=== PATIENT | female | born 2000 | race Caucasian/White ===

== ENCOUNTER 2021-10-29 22:06 | Outpatient (CLI) | payer BC, SELFPAY | END 2021-10-29 22:07 | disposition home or self-care (01) | LOC: AMB 11-06 00:48 | PROVIDERS: Visit Provider Family Medicine | DX: R41.82 Altered mental status, unspecified (principal) | CPT/HCPCS: A0425; A0427 ==

== ENCOUNTER 2021-10-29 22:31 | Emergency (ER) | payer BC, SELFPAY ==
[2021-10-29 22:40] VITALS: BP 134/82; PULSE 70; RESP 18; TEMP 37.6; O2SAT 100; BMI 23.8
[2021-10-29 22:56] VITALS: BP 134/82; PULSE 70; RESP 16; TEMP 37.6; O2SAT 100
--- NOTE | 2021-10-30 00:13 | ED.PSYCH ---
HPI - Psych General Chief Complaint: Psychiatric Problem/Disorder Stated Complaint: Panic attack Time Seen by Provider: 10/29/21 23:48 History of Present Illness HPI Narrative: 20-year-old young woman comes to emergency department via EMS with concern of potential seizure. Does have a history of panic attacks but apparently never has show quite like this. They have never had a seizure there is no family history of this. Does not struggle with recurrent headaches. They do have chronic pain however. Earlier today had been to a visit with [facility] regarding some right hip pain. They note that ?my legs are shit?. Demonstrates some hypermobility particularly of her patella. With friend accompanying on the way back from studying at the library then later started to have more leg/hip discomfort and fatigue. I believe returned to the dorm when began to shake as described by there friend. They do have memory of a good portion of these events including noting that there mouth was open and they were drooling. They also say that they felt like they could move. They did feel disoriented upon becoming more alert in the ambulance. Much later questioning/conversation reveals a history of prior similar episode probably in someone's kitchen. They note they were able to move enough at that time scratch themselves demonstrating the right thigh. Uses the term dissociative episode at one point elaborating on this kitchen event. Related Data Home Medications Medication Instructions Recorded Confirmed control 10/29/21 sertraline .ROUTE DAILY 10/29/21 Allergies Allergy/AdvReac Type Severity Reaction Status Date / Time No Known Drug Allergies Allergy Verified 10/29/21 22:51 Review of Systems Status of ROS: Reports: 10 or more systems reviewed and unremarkable except as noted in History and below [facility] Medical History Cardiac abnormality Social History Smoking Status: Never smoker How often do you have a drink containing alcohol: never AUDIT-C Alcohol total score: 0 Non-prescribed substance use: denies use Exam Narrative: Exam Narrative: Long fuscia-colored hair. Poor eye contact. Affected, careful speech. Breathing easily. A little tired perhaps but otherwise does not appear to be particularly postictal. Cranial nerves 2-12 are intact. [id number] intact. No nystagmus. No evidence of intraoral trauma. Neck is supple. Lungs are clear. Back without injury Cardiovascular with regular rate and rhythm Extremities are well-perfused. Without edema. Demonstrates notable patellar laxity without pain or apprehension. Right hip pain raising right leg. Const: Vital Signs, click to edit/add: Vital Signs - 24 hr 10/29/21 22:40 10/29/21 22:56 Temperature 99.6 F 99.6 F Pulse Rate [Pulse Oximeter] 70 70 Respiratory Rate 18 16 Blood Pressure [Ri ght Upper Arm] 134/82 134/82 Pulse Oximetry 100 100 Oxygen Delivery Me thod Room Air Room Air Documenting provider has reviewed patient's vital signs: yes Course Course Hospital Course: Generally well. a l ittle more energetic over time in the emergency department Vital Signs Vital signs: Initial Vital Signs Temperature 99.6 F 10/29/21 22:40 Temperature Source Temporal Artery Scan 10/29/21 22:40 Pulse Rate 70 10/29/21 22:40 Respiratory Rate 18 10/29/21 22:40 Blood Pressure 134/82 10/29/21 22:40 Blood Pressure Mean 99 10/29/21 22:40 Blood Pressure Position Supine 10/29/21 22:40 Pulse Oximetry 100 10/29/21 22:40 Oxygen Delivery Method 10/29/21 22:40 Vital Signs Temperature 99.6 F 10/29/21 22:40 Pulse Rate 70 10/29/21 22:40 Respiratory Rate 18 10/29/21 22:40 Blood Pressure 134/82 10/29/21 22:40 Pulse Oximetry 100 10/29/21 22:40 Oxygen Delivery Method 10/29/21 22:40 Temperature 99.6 F 10/29/21 22:56 Pulse Rate 70 10/29/21 22:56 Respiratory Rate 16 10/29/21 22:56 Blood Pressure 134/82 10/29/21 22:56 Pulse Oximetry 100 10/29/21 22:56 Oxygen Delivery Method 10/29/21 22:56 MDM - Psych MDM Narrative Medical decision making narrative: Normal labs. Venous blood gas though does show slightly low CO2 This may have been a pseudo-seizure. Conversion disorder? Appears well at this point. Lab Data Attestation: I reviewed the patient's lab results. Labs: Lab Results 10/30/21 10/30/21 10/30/21 Range/Units 00:30 00:30 00:30 WBC 5.15 (4.50-11.00) K/uL RBC 4.50 (4.00-5.20) m/uL Hgb 13.3 (12.0-16.0) gm/dL Hct 39.1 (33.0-51.0) % MCV 87 (80-100) fL MCH 30 (26-34) pg MCHC 34 (32-36) gm/dL RDW Coeff of Delvis 12.2 (11.5-15.5) % Plt Count 280 (140-440) K/uL Neut % (Auto) 68.6 (42.0-72.0) % Lymph % (Auto) 22.3 (20-44) % [place] % (Auto) 6.4 (0.0-11.0) % Eos % (Auto) 2.1 (0.0-7.0) % Baso % (Auto) 0.4 (0.0-3.0) % Neut # (Auto) 3.53 (1.7-7.0) K/uL Lymph # (Auto) 1.15 (0.90-2.90) K/uL [place] # (Auto) 0.30 (0.00-0.90) K/UL Eos # (Auto) 0.11 (0.00-0.50) K/uL Baso # (Auto) 0.02 (0.00-0.30) K/uL Abs Immat Gran (auto) 0.01 (0.00-0.30) K/uL VBG pH 7.433 H (7.32-7.43) VBG pCO2 38 L (40-50) mmHG VBG pO2 73.1 H (25-47) mmHG VBG HCO3 26 (21-28) mmol/L Sodium 136 (135-149) mmol/L Potassium 3.6 (3.6-5.1) mmol/L Chloride 104 (96-114) mmol/L Carbon Dioxide 22 (20-32) mmol/L BUN 12 (5-24) mg/dL Creatinine 0.7 (0.6-1.2) mg/dL Estimated Creat Clear 102.24 Estimated GFR 128 ml/min Glucose 98 (60-115) mg/dL Calcium 9.4 (8.7-10.8) mg/dL Total Creatine Kinase 54 (41-117) U/L C-Reactive Protein < 0.5 L (0.5-1.0) mg/dL Ethyl Alcohol < 0.01 L (0.01-0.03) % Discharge Plan Discharge Clinical Impression: Convulsion, Anxiety, Conversion disorder with abnormal movement Patient Disposition: Home w/ Parent or Adult Condition: Improved Additional Instructions: Yes. Hydrating is good. Physical therapy is also good if you can manage it. Okay to return for recurrent episode. It is good you have someone taking care of you. This handout on patellar subluxation, while not exactly your diagnosis, has a number of exercises that might be helpful. Going through this daily might benefit you a good deal. Prescriptions: No Action sertraline [Zoloft] .ROUTE DAILY control patch Follow Up/Referrals: Provider,Not a Local [Primary Care Provider] - Stand Alone Forms: [employer] Info Instructions
[2021-10-30 00:37] LABS: HCO3 VBG 26 mmol/L (21-28); PCO2 VBG 38 mmHG (40-50); PO2 VBG 73.1 mmHG (25-47); pH VBG 7.433 (7.32-7.43)
[2021-10-30 00:38] LABS: Basophils Absolute Auto 0.02 K/uL (0.00-0.30); Basophils Percent Auto 0.4 % (0.0-3.0); Eosinophils Absolute Auto 0.11 K/uL (0.00-0.50); Eosinophils Percent Auto 2.1 % (0.0-7.0); Hematocrit 39.1 % (33.0-51.0); Hemoglobin* 13.3 gm/dL (12.0-16.0); Immature Granulocytes Abs Auto 0.01 K/uL (0.00-0.30); Lymphocytes Absolute Auto 1.15 K/uL (0.90-2.90); Lymphocytes Percent Auto 22.3 % (20-44); Mean Corpuscular HGB Conc 34 gm/dL (32-36); Mean Corpuscular Hemoglobin 30 pg (26-34); Mean Corpuscular Volume 87 fL (80-100); Monocytes Percent Auto 6.4 % (0.0-11.0); Neutrophils Absolute Auto 3.53 K/uL (1.7-7.0); Neutrophils Percent Auto 68.6 % (42.0-72.0); Platelet Count* 280 K/uL (140-440); RDW Coefficient of Variation % 12.2 % (11.5-15.5); White Blood Count* 5.15 K/uL (4.50-11.00)
[2021-10-30 00:42] LABS: Slide Review Reflex No
[2021-10-30 00:57] LABS: Chloride* 104 mmol/L (96-114); Sodium* 136 mmol/L (135-149)
[2021-10-30 00:58] LABS: Potassium* 3.6 mmol/L (3.6-5.1)
[2021-10-30 01:00] LABS: Creatinine* 0.7 mg/dL (0.6-1.2); Est. Creatinine Clearance* 102.24; Estimated Glomerular Filt Rate 128 ml/min
[2021-10-30 01:01] LABS: Blood Urea Nitrogen* 12 mg/dL (5-24); Carbon Dioxide* 22 mmol/L (20-32); Creatine Kinase* 54 U/L (41-117)
[2021-10-30 01:02] LABS: Calcium* 9.4 mg/dL (8.7-10.8); Glucose* 98 mg/dL (60-115)
[2021-10-30 01:03] LABS: Ethanol* < 0.01 % (0.01-0.03)
[2021-10-30 01:08] LABS: C Reactive Protein* < 0.5 mg/dL (0.5-1.0)
== END 2021-10-30 01:36 | disposition home or self-care (01) ==
PROVIDERS: Emergency Provider Family Medicine
DX: R56.9 Unspecified convulsions (principal); F41.9 Anxiety disorder, unspecified
CPT/HCPCS: 36415; 80048; 82077; 82550; 82803; 85025; 86140; 99283; 99284

== ENCOUNTER 2022-12-04 12:17 | Emergency (ER) | payer OTHER, SELFPAY ==
[2022-12-04 12:25] VITALS: BP 136/72; PULSE 66; RESP 18; TEMP 36.6; O2SAT 98; BMI 22.0
--- NOTE | 2022-12-04 13:24 | CRLHL7_ITS ---
For Patients: As a result of the Century Cures Act, medical imaging exams and procedure reports are released immediately into your electronic medical record. You may view this report before your referring provider. If you have questions, please contact your health care provider. INDICATION: Stabbing pelvic pain, IUD placed 2 weeks ago COMPARISON: None. TECHNIQUE: TV: Transvaginal ultrasound of the pelvis was performed to better visualize the genitourinary organs, such as the ovaries and/or endometrium. Color-flow and spectral Doppler imaging of both ovaries is performed. FINDINGS: Reported last menstrual period: 11/24/2022. The uterus is normal in size and position and measures 5.8 x 3.1 x 4.2 cm. No uterine masses. No endometrial thickening. IUD well positioned within the endometrial cavity. No endometrial masses. The cervix is normal. The right ovary measures 3.8 x 1.9 x 1.8 cm. Physiologic appearance without a dominant cystic lesion or solid ovarian/adnexal mass. There is normal arterial and venous color Doppler flow and normal arterial and venous waveforms on duplex Doppler. The left ovary measures 3.9 x 2.1 x 2.5 cm. Physiologic appearance without a dominant cystic lesion or solid ovarian/adnexal mass. There is normal arterial and venous color Doppler flow and normal arterial and venous waveforms on duplex Doppler. No free fluid. IMPRESSION: Normal pelvic ultrasound. The intrauterine device is in sonographically good position within the endometrial cavity. Dictated by Dianelys Trinh MD @ 12/04/2022 3:33:27 PM (Electronically Signed)
--- NOTE | 2022-12-04 13:24 | ED.GENADULT ---
HPI - General Adult General Time Seen by Provider: 13:24 Date Seen: 12/04/22 Chief complaint: Abdominal Pain Stated complaint: Stabbing pain after IUD placement Time Seen by Provider: 12/04/22 13:19 History of Present Illness HPI narrative: This is a 21-year-old female with a past medical history including depression/anxiety, and history of heavy/irregular vaginal bleeding (sounds like possible dysfunctional uterine bleeding, but patient unaware of her formal diagnosis) who had an IUD placed 2 weeks ago by the [facility] in [place]. Since placement of her IUD she has experienced some pelvic cramps and some light vaginal bleeding and spotting. She was told to expect some leg cramping and bleeding by her consumer services advisor so this is not been concerning for her. However this morning while she was in class years she had an episode of severe sharp stabbing pain located in her pelvis and uterus. The pain made her nauseous. Her bleeding is heavier. She is having bright red bleeding. Not a lot of clots. There because of the pain she was nauseous and lightheaded. She called the phone triage nurse and was directed to the urgent care. From the urgent care she was directed here to the ER to get a pelvic ultrasound to assess the position of her IUD. She is not having any fevers or chills. No ongoing nausea. She did not vomiting. Bowel movements tend to be irregular for her but that is her normal baseline. No recent diarrhea. Or she has a small amount of clear vaginal discharge which she thinks is physiologic for her. She does not really know her last regular period because she has been having spotting and bleeding for the past couple of weeks since placement of the IUD. She does not think she is . She took ibuprofen 400 mg this morning for her pain and it is now ?muted? and tolerable. She does not want more pain medicine at this time. Related Data Home Medications Medication Instructions Recorded Confirmed bupropion HCl [Wellbutrin XL] PO 12/04/22 12/04/22 fluoxetine 10 mg capsule (Prozac) 30 mg PO QDAY 12/04/22 12/04/22 levonorgestrel 14 mcg/24 hrs (3 1 device intrauterine ONCE 12/04/22 12/04/22 yrs) 13.5 mg intrauterine device (Tara) spironolactone 100 mg tablet 100 mg PO QAM 12/04/22 12/04/22 Allergies Allergy/AdvReac Type Severity Reaction Status Date / Time No Known Drug Allergies Allergy Verified 12/04/22 11:15 [facility] Medical History Cardiac abnormality Social History Smoking Status: Never smoker How often do you have a drink containing alcohol: never AUDIT-C Alcohol total score: 0 Non-prescribed substance use: denies use Exam Narrative: Exam Narrative: Constitutional: Appears well-developed and well-nourished. Alert. Conversant. Non toxic. HENT: Head: Atraumatic. Nose: Nose normal. Mouth/Throat: Oral mucosa is clear and moist. no trismus. Pharynx normal. Tonsils symmetric. No tonsillar enlargement, erythema, or exudate. Eyes: Conjunctivae normal. EOM normal. Pupils equal, round, and reactive to light. No scleral icterus. Neck: Normal range of motion. Neck supple. No tracheal deviation present. Cardiovascular: Normal rate, regular rhythm. No gallop. No friction rub. No murmur heard. Pulmonary/Chest: Effort normal. No stridor. No respiratory distress. No wheezes. No rales. No rhonchi . Abdominal: Soft. Bowel sounds normal. No distension. No mass. Suprapubic and bilateral lower quadrant tenderness. No rebound. No guarding. No CVA tenderness. Musculoskeletal: RUE: Normal range of motion. No tenderness. No deformity LUE: Normal range of motion. No tenderness. No deformity RLE: Normal range of motion. No edema. No tenderness. No deformity LLE: Normal range of motion. No edema. No tenderness. No deformity Lymph: No cervical adenopathy. Neurological: Alert and oriented to person, place, and time. Normal strength. CN II-VII intact. No sensory deficit. GCS eye subscore is 4. GCS verbal subscore is 5. GCS motor subscore is 6. Normal coordination Skin: Or has age-appropriate acne on her cheeks, otherwise Skin is warm and dry. No rash noted. No pallor. Normal capillary refill. Psychiatric: Normal mood. Normal affect. Const: Vital Signs, click to edit/add: Vital Signs - 24 hr 12/04/22 12:25 Temperature 97.9 F Pulse Rate [Right Pulse Oximeter] 66 Respiratory Rate 18 Blood Pressure [Ri ght Upper Arm] 136/72 Pulse Oximetry 98 Oxygen Delivery Me thod Room Air Course Vital Signs Vital signs: Initial Vital Signs Temperature 97.9 F 12/04/22 12:25 Temperature Source Temporal Artery Scan 12/04/22 12:25 Pulse Rate 66 12/04/22 12:25 Respiratory Rate 18 12/04/22 12:25 Blood Pressure 136/72 12/04/22 12:25 Blood Pressure Mean 93 12/04/22 12:25 Blood Pressure Position Sitting 12/04/22 12:25 Pulse Oximetry 98 12/04/22 12:25 Oxygen Delivery Method Room Air 12/04/22 12:25 Vital Signs Temperature 97.9 F 12/04/22 12:25 Pulse Rate 66 12/04/22 12:25 Respiratory Rate 18 12/04/22 12:25 Blood Pressure 136/72 12/04/22 12:25 Pulse Oximetry 98 12/04/22 12:25 Oxygen Delivery Method Room Air 12/04/22 12:25 Temperature 97.9 F 12/04/22 12:25 Pulse Rate 66 12/04/22 12:25 Respiratory Rate 18 12/04/22 12:25 Blood Pressure 136/72 12/04/22 12:25 Pulse Oximetry 98 12/04/22 12:25 Oxygen Delivery Method Room Air 12/04/22 12:25 Medical Decision Making MDM Narrative Medical decision making narrative: Presented to the Emergency Department with bilateral lower quadrant and suprapubic pelvic cramping and vaginal bleeding that has been present in mild for the past 2 weeks since placement of her IUD and became much worse for an episode this morning. Fortunately pain was manageable with [id number] medications and the patient is more comfortable here in the ER.. The differential diagnosis of abdominal pain includes: Possible IUD complication such as migration, malposition, uterine perforation, as well as obstetric complication, UTI, kidney stone, atypical presentation of Appendicitis, Bowel Obstruction, UTI, kidney stone, Enteritis/Colitis, amongst many other etiologies. No upper abdominal pain to suggest pancreatitis, cholecystitis, gastritis/ulcer disease. Fortunately Laboratory testing does not reveal a cause for the patient's pain. Urinalysis is normal. test negative. Pelvic ultrasound is noted to be normal. IUD in good position. Uterus normal. Ovaries and fallopian tubes normal. Patient is not having any concerning vaginal discharge, fever or other symptoms of STI or PID. No evidence for torsion. The exact etiology of the pelvic pain is not clear at this time. No life threatening cause or need for emergent surgery or hospital admission is detected today. The patient was advised that if symptoms do not completely resolve within another 12-24 hours re-evaluation with primary care or return to the ED is indicated. The patient also understands that if they worsen, they should return to the ER right away. I discussed the uncertainty about the diagnosis and answered the patient's questions. Abdominal pain return precautions discussed. Lab Data Labs: Lab Results 12/04/22 12/04/22 Range/Units 13:35 14:24 WBC 4.69 (4.50-11.00) K/uL RBC 4.80 (4.00-5.20) m/uL Hgb 13.5 (12.0-16.0) gm/dL Hct 42.4 (33.0-51.0) % MCV 88 (80-100) fL MCH 28 (26-34) pg MCHC 32 (32-36) gm/dL RDW Coeff of Delvis 13.2 (11.5-15.5) % Plt Count 279 (140-440) K/uL Neut % (Auto) 64.9 (42.0-72.0) % Lymph % (Auto) 24.3 (20-44) % [place] % (Auto) 7.2 (0.0-11.0) % Eos % (Auto) 3.2 (0.0-7.0) % Baso % (Auto) 0.4 (0.0-3.0) % Neut # (Auto) 3.04 (1.7-7.0) K/uL Lymph # (Auto) 1.14 (0.90-2.90) K/uL [place] # (Auto) 0.30 (0.00-0.90) K/UL Eos # (Auto) 0.15 (0.00-0.50) K/uL Baso # (Auto) 0.02 (0.00-0.30) K/uL Abs Immat Gran (auto) 0.00 (0.00-0.30) K/uL Imm/Tot Granulo (auto) 0.0 % Sodium 139 (135-149) mmol/L Potassium 4.0 (3.6-5.1) mmol/L Chloride 103 (96-114) mmol/L Carbon Dioxide 27 (20-32) mmol/L Anion Gap 9 (7-15) mEq/L BUN 13 (5-24) mg/dL Creatinine 0.7 (0.5-1.5) mg/dL Estimated Creat Clear 120.01 Estimated GFR 127 ml/min Glucose 80 (60-115) mg/dL Calcium 9.4 (8.4-10.6) mg/dL Urine Color Yellow (Yellow) Urine Appearance Clear (Clear) Urine pH 6.5 (5.0-8.5) Ur Specific [place] 1.010 (1.000-1.030) Urine Protein Negative (Negative) Urine Glucose (UA) Negative (Negative) Urine Ketones Negative (Negative) Urine Blood 2+ A (Negative) Urine Nitrite Negative (Negative) Urine Bilirubin Negative (Negative) Urine Urobilinogen 0.2 (0.2-1.0) Ur Leukocyte Esterase Negative (Negative) Urine RBC 0-2 (0-2) Urine WBC 0-2 (0-5) Ur Squamous Epith Cells Few (None-Few) Urine Bacteria Moderate A (None) Urine HCG, Qual Negative (Negative) Imaging Data US pelvic: Attestation: I have reviewed the pertinent imaging results. Radiologist's impression: FINDINGS: Reported last menstrual period: 11/24/2022. The uterus is normal in size and position and measures 5.8 x 3.1 x 4.2 cm. No uterine masses. No endometrial thickening. IUD well positioned within the endometrial cavity. No endometrial masses. The cervix is normal. The right ovary measures 3.8 x 1.9 x 1.8 cm. Physiologic appearance without a dominant cystic lesion or solid ovarian/adnexal mass. There is normal arterial and venous color Doppler flow and normal arterial and venous waveforms on duplex Doppler. The left ovary measures 3.9 x 2.1 x 2.5 cm. Physiologic appearance without a dominant cystic lesion or solid ovarian/adnexal mass. There is normal arterial and venous color Doppler flow and normal arterial and venous waveforms on duplex Doppler. No free fluid. IMPRESSION: Normal pelvic ultrasound. The intrauterine device is in sonographically good position within the endometrial cavity. Discharge Plan Discharge Clinical Impression: Pelvic pain, Abnormal vaginal bleeding Patient Disposition: Home, Self-Care Condition: Stable Instructions: Abnormal (Dysfunctional) Uterine Bleeding (ED), Pelvic Pain (ED) Additional Instructions: As we discussed, please return to the ER right away if you have any worsening or concerning symptoms-especially if you have worsening pain, or heavier bleeding, lightheadedness or fainting, or fever. Please follow-up with your OB doctor for recheck as soon as possible. Prescriptions: No Action Tara 14 mcg/24 hrs (3 yrs) 13.5 mg intrauterine device 1 device intrauterine ONCE Rx Instructions: as a single dose fluoxetine [Prozac] 10 mg capsule 30 mg PO QDAY bupropion HCl [Wellbutrin XL] PO spironolactone 100 mg tablet 100 mg PO QAM Follow Up/Referrals: Provider,Not a Local [Primary Care Provider] - Stand Alone Forms: [employer] Info Instructions
[2022-12-04 13:46] LABS: Basophils Absolute Auto 0.02 K/uL (0.00-0.30); Basophils Percent Auto 0.4 % (0.0-3.0); Eosinophils Absolute Auto 0.15 K/uL (0.00-0.50); Eosinophils Percent Auto 3.2 % (0.0-7.0); Hematocrit 42.4 % (33.0-51.0); Hemoglobin* 13.5 gm/dL (12.0-16.0); Lymphocytes Absolute Auto 1.14 K/uL (0.90-2.90); Lymphocytes Percent Auto 24.3 % (20-44); Mean Corpuscular HGB Conc 32 gm/dL (32-36); Mean Corpuscular Hemoglobin 28 pg (26-34); Mean Corpuscular Volume 88 fL (80-100); Monocytes Percent Auto 7.2 % (0.0-11.0); Neutrophils Absolute Auto 3.04 K/uL (1.7-7.0); Neutrophils Percent Auto 64.9 % (42.0-72.0); Platelet Count* 279 K/uL (140-440); RDW Coefficient of Variation % 13.2 % (11.5-15.5); White Blood Count* 4.69 K/uL (4.50-11.00)
[2022-12-04 13:50] LABS: Slide Review Reflex No
[2022-12-04 13:57] LABS: Chloride* 103 mmol/L (96-114)
[2022-12-04 13:58] LABS: Sodium* 139 mmol/L (135-149)
[2022-12-04 14:00] LABS: Anion Gap 9 mEq/L (7-15); Carbon Dioxide* 27 mmol/L (20-32); Creatinine* 0.7 mg/dL (0.5-1.5); Est. Creatinine Clearance* 120.01; Estimated Glomerular Filt Rate 127 ml/min
[2022-12-04 14:01] LABS: Blood Urea Nitrogen* 13 mg/dL (5-24); Calcium* 9.4 mg/dL (8.4-10.6); Glucose* 80 mg/dL (60-115)
[2022-12-04 14:34] LABS: Ur HCG Qualitative* Negative (Negative)
[2022-12-04 14:39] LABS: Appearance Urine Clear (Clear); Bilirubin Urine Negative (Negative); Blood Urine 2+ (Negative); Color Urine Yellow (Yellow); Glucose Urine Negative (Negative); Ketones Urine Negative (Negative); Leukocyte Esterase Urine Negative (Negative); Nitrite Urine Negative (Negative); Protein Urine Negative (Negative); Urobilinogen Urine 0.2 (0.2-1.0); pH Urine 6.5 (5.0-8.5)
[2022-12-04 14:56] LABS: RBC Urine 0-2 (0-2); Squamous Epithelial Cell Urine Few (None-Few); WBC Urine 0-2 (0-5)
[2022-12-04 14:57] LABS: Bacteria Urine Moderate
== END 2022-12-04 15:58 | disposition home or self-care (01) ==
PROVIDERS: Emergency Provider Emergency Medicine
DX: R10.2 Pelvic and perineal pain (principal); N93.9 Abnormal uterine and vaginal bleeding, unspecified
CPT/HCPCS: 36415; 76830; 80048; 81001; 81025; 85025; 87086; 93976; 99283